=== PATIENT | female | born 1990 | race Caucasian/White ===

== ENCOUNTER 2023-01-02 10:20 | Observation (INO) | payer OTHER ==
[2023-01-02] MEDS ORDERED: Promethazine HCl 25 MG/ML VIAL IM PRN (10:36)
[2023-01-02] MEDS ORDERED: Lidocaine 1% (PF) 30 ML VIAL SC PRN (10:36)
[2023-01-02] MEDS ORDERED: hydrALAZINE 20 MG/ML VIAL SLOW IVP PRN (10:36)
[2023-01-02] MEDS ORDERED: Ondansetron PF 4 MG/2 ML Vial IVP PRN (10:36)
[2023-01-02 10:44] VITALS: BMI 37.3
[2023-01-02] MEDS ORDERED: Lactated Ringer's 1,000 ML IV SCH ×2 (10:45)
[2023-01-02] MEDS ORDERED: NS w/ Oxytocin 30 units 500 ML IV SCH (10:45)
[2023-01-02] MEDS ORDERED: Terbutaline Sulfate 1 MG/ML VIAL SC ONE (10:45)
[2023-01-02 11:16] LABS: Hemoglobin 11.9 g/dL (12.0-15.5); Mean Corpuscular HGB CONC 35.5 g/dL (32.0-36.0); Mean Corpuscular Hemoglobin 31.1 pg (27.0-33.0); Mean Corpuscular Volume 87.5 fl (81.6-98.3); Mean Platelet Volume 10.1 fl (7.4-10.4); Platelet Count 337 10x3/uL (150-450); Red Blood Cell (RBC) Count 3.83 10x6/uL (3.90-5.03); White Blood Cell (WBC) Count 8.1 10x3/uL (3.5-10.5)
[2023-01-02 12:14] LABS: Syphilis Antibody Nonreactive (Nonreactive); Syphilis Antibody Index 0.05 S/CO (<1.00 Non-Reactive)
[2023-01-02 12:18] LABS: HBSAg Index 0.15 S/CO (0-0.99); Hep B Surf Ag - L&D Non-Reactive S/CO (NonReactive)
== END 2023-01-02 13:31 | disposition home or self-care (01) ==
LOC: CSHLD 10:20
PROVIDERS: ADMIT Obstetrics & Gynecology; ATTEND Obstetrics & Gynecology
DX: O32.1XX0 Maternal care for breech presentation, not applicable or unspecified (principal); Z3A.36 36 weeks gestation of pregnancy
CPT/HCPCS: 36415; 59412; 85027; 86780; 86850; 86900; 86901; 87340; 96372; 99283; J3105

== ENCOUNTER 2023-01-22 10:52 | Outpatient (CLI) | payer OTHER | END 2023-01-22 10:53 | disposition home or self-care (01) | LOC: CSHLAB 10:52 | PROVIDERS: ATTEND Obstetrics & Gynecology | DX: Z01.812 Encounter for preprocedural laboratory examination (principal); O32.1XX0 Maternal care for breech presentation, not applicable or unspecified; O48.0 Post-term pregnancy; Z3A.00 Weeks of gestation of pregnancy not specified; Z53.9 Procedure and treatment not carried out, unspecified reason | CPT/HCPCS: 85014; 85018; 85049; 86780; 86850; 86900; 86901; 87340; 87389 ==

== ENCOUNTER 2023-01-24 05:40 | Inpatient (IN) | payer OTHER, SELFPAY ==
[2023-01-22 12:59] LABS: Hemoglobin 14.1 g/dL (12.0-15.5); Platelet Count 386 10x3/uL (150-450)
[2023-01-22 13:30] LABS: Syphilis Antibody Nonreactive (Nonreactive); Syphilis Antibody Index 0.05 S/CO (<1.00 Non-Reactive)
[2023-01-22 13:31] LABS: HBSAg Index 0.14 S/CO (0-0.99); HIV (1/2) Antibody/Antigen Non-Reactive (NonReactive); HIV 1/2 INDEX 0.04 S/CO (<1.00); Hep B Surf Ag Non-Reactive S/CO (NonReactive)
[2023-01-24 06:02] VITALS: BMI 37.8
[2023-01-24] MEDS ORDERED: Tranexamic Acid 1,000 MG/10 ML VIAL IVP PRN (06:54)
[2023-01-24] MEDS ORDERED: Famotidine/PF 20 mg/2ml Vial SLOW IVP PRN (06:54)
[2023-01-24] MEDS ORDERED: Carboprost 250 MCG/ML AMP IM PRN (06:54)
[2023-01-24] MEDS ORDERED: Promethazine HCl 25 MG/ML VIAL IM PRN ×3 (06:54→11:55)
[2023-01-24] MEDS ORDERED: Misoprostol 200 MCG TAB PR PRN (06:54)
[2023-01-24] MEDS ORDERED: Methylergonovine 0.2 MG/ML VIAL IM PRN (06:54)
[2023-01-24] MEDS ORDERED: Bicitra 30 ML UDCUP PO PRN (06:54)
[2023-01-24] MEDS ORDERED: Ondansetron PF 4 MG/2 ML Vial IVP PRN ×3 (06:54→11:55)
[2023-01-24] MEDS ORDERED: hydrALAZINE 20 MG/ML VIAL SLOW IVP PRN ×2 (06:54→11:55)
[2023-01-24] MEDS ORDERED: NS w/ Oxytocin 30 units 500 ML IV SCH (07:00)
[2023-01-24] MEDS ORDERED: CEFAZOLIN 2 GM in Sodium Chloride 0.9% 100 ML IVPB SCH (07:00)
[2023-01-24] MEDS ORDERED: Lactated Ringer's 1,000 ML IV SCH ×2 (07:00)
[2023-01-24] MEDS ORDERED: Morphine PF 10 MG/10 ML VIAL ONE (08:08)
[2023-01-24] MEDS ORDERED: Oxytocin 10 UNITS/ML VIAL ONE (08:09)
[2023-01-24] MEDS ORDERED: Ondansetron PF 4 MG/2 ML Vial ONE (08:09)
[2023-01-24] MEDS ORDERED: Hepatitis B Vaccine 10 MCG/0.5 ML SYR ONE (08:13)
[2023-01-24] MEDS ORDERED: Ketorolac Tromethamine 30 MG/ML VIAL ONE (08:45)
[2023-01-24] MEDS ORDERED: Moisturizing Cream (Eucerin) 113 GM JAR TOP PRN (09:07)
[2023-01-24] MEDS ORDERED: diphenhydrAMINE 50 MG/ML VIAL IVP PRN (09:07)
[2023-01-24] MEDS ORDERED: Ondansetron HCl/PF 4 MG/2 ML Vial IVP PRN (09:07)
[2023-01-24] MEDS ORDERED: Naloxone HCl 0.4 mg/ml Vial IVP PRN ×2 (09:07)
[2023-01-24] MEDS ORDERED: Fentanyl 100 MCG/2 ML VIAL SLOW IVP PRN (09:07)
[2023-01-24] MEDS ORDERED: Meperidine HCl/PF 25 MG/ML VIAL SLOW IVP PRN (09:07)
[2023-01-24] MEDS ORDERED: Promethazine HCl 25 MG SUPP PR PRN (09:07)
[2023-01-24] MEDS ORDERED: Naloxone HCl 0.4 mg/ml Vial IV PRN (09:07)
[2023-01-24] MEDS ORDERED: Communication Order-Pharmacy FS SCH (09:15)
[2023-01-24] MEDS ORDERED: Ketorolac Tromethamine 30 MG/ML VIAL IVP SCH (09:15)
[2023-01-24] MEDS ORDERED: Boostrix 0.5 ML (Tdap) VIAL (>/=7 yrs of age) IM ONE (11:55)
[2023-01-24] MEDS ORDERED: Bisacodyl 10 MG SUPP PR PRN (11:55)
[2023-01-24] MEDS ORDERED: Acetaminophen 325 MG TAB PO PRN (11:55)
[2023-01-24] MEDS ORDERED: Lanolin Ointment 7 GM TUBE TOP PRN (11:55)
[2023-01-24] MEDS ORDERED: Prenatal Vitamin 1 TAB PO SCH (12:15)
[2023-01-24] MEDS ORDERED: Docusate 100 MG CAP PO SCH (12:15)
[2023-01-24] MEDS ORDERED: Ferrous Sulfate 325 MG TAB PO SCH (12:15)
[2023-01-24] MEDS: Ketorolac Tromethamine 30 MG/ML VIAL IVP PRN (13:55)
[2023-01-24] MEDS ORDERED: fentaNYL 50 mcg/mL 1 mL Vial SLOW IVP SCH ×2 (15:15→19:00)
[2023-01-24 15:36] LABS: ALT (SGPT) 16 U/L (8-55); AST (SGOT) 26 U/L (5-34); Albumin 3.2 g/dL (3.5-5.0); Alkaline Phosphatase 166 U/L (40-110); Anion Gap 15 mmol/L (10-20); BUN (Urea Nitrogen) 8 mg/dL (7.0-18.7); Bilirubin, Total 0.3 mg/dL (0.2-1.2); Calc. Creatinine Clearance 179 mL/min (70-130); Calcium 8.8 mg/dL (7.8-10.44); Carbon Dioxide 18 mmol/L (22-29); Chloride 108 mmol/L (98-107); Estimated GFR 119; Globulin 3.2 g/dL (2.4-3.5); Glucose 86 mg/dL (70-105); Potassium 4.2 mmol/L (3.5-5.1); Protein, Total 6.4 g/dL (6.0-8.3); Sodium 137 mmol/L (136-145)
[2023-01-24] MEDS ORDERED: HYDROmorphone 0.5 MG/0.5 ML SYRINGE SLOW IVP SCH (18:45)
[2023-01-24] MEDS ORDERED: HYDROcodone/Acetaminophen 5/325 mg Tablet PO PRN (21:15)
[2023-01-24] MEDS ORDERED: Zolpidem Tartrate 5 MG TAB PO PRN (21:15)
[2023-01-24] MEDS: Docusate 100 MG CAP PO SCH (21:18)
[2023-01-25] MEDS: Ketorolac Tromethamine 30 MG/ML VIAL IVP PRN (00:49)
[2023-01-25] MEDS: diphenhydrAMINE 25 MG CAP PO PRN ×2 (01:03→10:51)
[2023-01-25 05:31] LABS: Hemoglobin 11.1 g/dL (12.0-15.5); Mean Corpuscular HGB CONC 34.6 g/dL (32.0-36.0); Mean Corpuscular Hemoglobin 30.6 pg (27.0-33.0); Mean Corpuscular Volume 88.4 fl (81.6-98.3); Mean Platelet Volume 10.9 fl (7.4-10.4); Platelet Count 288 10x3/uL (150-450); RBC Distribution Width 13.1 % (11.5-14.5); Red Blood Cell (RBC) Count 3.63 10x6/uL (3.90-5.03); White Blood Cell (WBC) Count 13.2 10x3/uL (3.5-10.5)
[2023-01-25] MEDS: Ferrous Sulfate 325 MG TAB PO SCH ×2 (07:09→07:53)
[2023-01-25] MEDS: Docusate 100 MG CAP PO SCH ×2 (07:51→21:14)
[2023-01-25] MEDS: Prenatal Vitamin 1 TAB PO SCH (07:51)
[2023-01-25] MEDS: HYDROcodone/Acetaminophen 5/325 mg Tablet PO PRN ×4 (07:52→21:15)
[2023-01-25] MEDS ORDERED: Lanolin Ointment 7 GM TUBE TOP PRN (11:00)
[2023-01-25] MEDS ORDERED: Moisturizing Cream (Eucerin) 113 GM JAR TOP PRN (11:00)
[2023-01-25] MEDS ORDERED: Simethicone Chewable 80 MG TAB PO PRN (11:00)
[2023-01-25] MEDS ORDERED: Zolpidem Tartrate 5 MG TAB PO PRN (11:00)
[2023-01-25] MEDS ORDERED: hydrALAZINE 20 MG/ML VIAL SLOW IVP PRN (11:00)
[2023-01-25] MEDS ORDERED: Ondansetron PF 4 MG/2 ML Vial IVP PRN (11:00)
[2023-01-25] MEDS ORDERED: HYDROcodone/Acetaminophen 5/325 mg Tablet PO PRN ×2 (11:00)
[2023-01-25] MEDS ORDERED: Bisacodyl 10 MG SUPP PR PRN (11:00)
[2023-01-25] MEDS ORDERED: Acetaminophen 325 MG TAB PO PRN (11:00)
[2023-01-25] MEDS ORDERED: diphenhydrAMINE 50 MG/ML VIAL IVP PRN (11:00)
[2023-01-25] MEDS ORDERED: Promethazine HCl 25 MG/ML VIAL IM PRN (11:00)
[2023-01-25] MEDS ORDERED: Naloxone HCl 0.4 mg/ml Vial IV PRN (11:00)
[2023-01-25] MEDS ORDERED: diphenhydrAMINE 25 MG CAP PO PRN (11:00)
[2023-01-25] MEDS ORDERED: Ibuprofen 800 MG TAB PO SCH (14:00)
[2023-01-25] MEDS: Ibuprofen 800 MG TAB PO SCH ×2 (15:01→21:14)
[2023-01-25] MEDS: Simethicone Chewable 80 MG TAB PO PRN ×2 (15:02→21:14)
[2023-01-25] MEDS ORDERED: Docusate 100 MG CAP PO SCH (21:00)
[2023-01-25] MEDS ORDERED: Ferrous Sulfate 325 MG TAB PO SCH (21:00)
[2023-01-26] MEDS: Ferrous Sulfate 325 MG TAB PO SCH ×2 (00:46→07:08)
[2023-01-26] MEDS: HYDROcodone/Acetaminophen 5/325 mg Tablet PO PRN ×3 (01:08→12:31)
[2023-01-26] MEDS: Ibuprofen 800 MG TAB PO SCH (04:15)
[2023-01-26 08:19] VITALS: BP 125/71; TEMP 97.9
[2023-01-26] MEDS: Docusate 100 MG CAP PO SCH (08:35)
[2023-01-26] MEDS: Prenatal Vitamin 1 TAB PO SCH (08:35)
[2023-01-26] MEDS ORDERED: Prenatal Vitamin 1 TAB PO SCH (09:00)
== END 2023-01-26 13:00 | disposition home or self-care (01) | DRG 788 ==
LOC: INTOOBSV 05:40 → CSHLD 05:40 → OBSVTOIN 06:54 → CSHPP 11:06 → UNDODISOB 01-25 11:00
PROVIDERS: ADMIT Obstetrics & Gynecology; ATTEND Obstetrics & Gynecology
PROC: 10D00Z1 Extraction of Products of Conception, Low, Open Approach (ICD-10-PCS; principal; 2023-01-24)
DX: O32.1XX0 Maternal care for breech presentation, not applicable or unspecified (principal); Z3A.42 42 weeks gestation of pregnancy; Z37.0 Single live birth; O48.0 Post-term pregnancy; Z88.0 Allergy status to penicillin; Z91.040 Latex allergy status; F41.9 Anxiety disorder, unspecified; O99.344 Other mental disorders complicating childbirth
CPT/HCPCS: 36415; 51702; 82570; 84156; 85014; 85018; 85027; 85049; 86780; 86850; 86900; 86901; 87340; 87389; J0360; J1885; J2274; J2405; J2590; J3010; J3490